=== PATIENT | male | born 1965 | race African-American/Black ===

== ENCOUNTER 2016-11-28 10:07 | Emergency (ER) | payer SELFPAY ==
[~2016-11-28] VITALS: Ht 188 cm; Wt 116.0 kg
[2016-11-28 10:09] VITALS: BP 188/117; PULSE 71; RESP 16; TEMP 98.4; O2SAT 100
[2016-11-28 10:31] VITALS: BP 168/107; PULSE 72; RESP 16; O2SAT 99
[2016-11-28 10:48] LABS: BLOOD, URINE TRACE (NEG); COMMENT (UR) CULT NOT INDICATED; CULTURE IF INDICATED CULT NOT INDICATED; GLUCOSE,URINE NEG (NEG); KETONE, URINE NEG (NEG); MUCUS URINE FEW /lpf (OCC); NITRITE,URINE NEG (NEG); PH, URINE 5.5 (5.0-8.5); SQUAMOUS EPITHELIAL CELL URINE <1 /hpf (0-5); URINE COLOR YELLOW (YELLW/STRAW)
[2016-11-28 11:02] LABS: AUTOMATED NEUTROPHIL # 2.9 TH/MM3 (1.8-7.7); BASOPHIL % 0.4 % (0.0-2.0); EOSINOPHIL # 0.1 TH/MM3 (0-0.4); EOSINOPHIL % 1.9 % (0.0-4.0); HEMATOCRIT 45.4 % (39.0-51.0); HEMO FLAGS DIFF FINAL; LYMPH % 39.9 % (9.0-44.0); LYMPHOCYTE # 2.3 TH/MM3 (1.0-4.8); MEAN CELL VOLUME 86.1 FL (80.0-100.0); MEAN CORPUSCULAR HGB CONC 32.5 % (32.0-36.0); MONO % 7.7 % (0.0-8.0); NEUT % 50.1 % (16.0-70.0); PLATELET COUNT 200 TH/MM3 (150-450); RED BLOOD COUNT 5.27 MIL/MM3 (4.50-5.90); WHITE BLOOD COUNT 5.8 TH/MM3 (4.0-11.0)
[2016-11-28 11:21] LABS: ALT (GPT) 34 U/L (12-78)
[2016-11-28 11:23] LABS: ALKALINE PHOSPHATASE 68 U/L (45-117); TOTAL BILIRUBIN ADULT 0.5 MG/DL (0.2-1.0)
--- NOTE | 2016-11-28 11:27 | PD ---
HPI Chief Complaint: Abnormal Results Time Seen by Provider: 11:22 Travel History International Travel<30 days: No Contact w/Intl Traveler<30days: No Traveled to known affect area: No History of Present Illness HPI Patient is a 51 year male sent to the emergency room for evaluation of abnormal lab results. Patient states he had a physical prior to starting his employment with the [employer], he was notified by the nurse this morning that he had abnormal results regarding his kidney function was told to come to emergency department for medical clearance. Patient is a physical complaints at this time. He reports a history of hypertension, noncompliant with medication due to insurance issues. He reports being on lisinopril and hydrochlorothiazide in the past. [facility] Past Medical History Arthritis: No Asthma: No Autoimmune Disease: No High Cholesterol: Yes Chest Pain: Yes Congestive Heart Failure: No COPD: No Cerebrovascular Accident: No Diabetes: No Diminished Hearing: No GERD: No Glaucoma: No Headaches: Yes Hepatitis: No Hiatal Hernia: No Hypertension: Yes Kidney Stones: No Immunizations Current: Yes Renal Failure: No Seizures: No Sleep Apnea: No Thyroid Disease: No Ulcer: No Influenza Vaccination: No Past Surgical History Abdominal Surgery: No Cardiac Surgery: No Ear Surgery: No Endocrine Surgery: No Eye Surgery: No Genitourinary Surgery: No Gynecologic Surgery: No Oral Surgery: No Thoracic Surgery: No Tonsillectomy: Yes Social History Alcohol Use: Yes (weekends) Tobacco Use: No Substance Use: No Allergies-Medications (Allergen,Severity, Reaction): Coded Allergies: No Known Allergies (Verified , 11/28/16) Reported Meds & Prescriptions Reported Meds & Active Scripts Active Hydrochlorothiazide 12.5 Mg Cap 12.5 Mg PO DAILY Lisinopril 10 Mg Tab 10 Mg PO DAILY Review of Systems Except as stated in HPI: all other systems reviewed are Neg Physical Exam Narrative GENERAL: Well-developed, well-nourished, alert male. Resting comfortably in no acute distress. SKIN: Warm and dry. HEAD: Atraumatic. Normocephalic. EYES: Pupils equal and round. No scleral icterus. No injection or drainage. ENT: No nasal bleeding or discharge. Mucous membranes pink and moist. NECK: Trachea midline. No JVD. CARDIOVASCULAR: Regular rate and rhythm. RESPIRATORY: No accessory muscle use. Clear to auscultation. Breath sounds equal bilaterally. GASTROINTESTINAL: Abdomen soft, non-tender, nondistended. Hepatic and splenic margins not palpable. MUSCULOSKELETAL: Extremities without clubbing, cyanosis, or edema. No obvious deformities. NEUROLOGICAL: Awake and alert. No obvious cranial nerve deficits. Motor grossly within normal limits. Five out of 5 muscle strength in the arms and legs. Normal speech. PSYCHIATRIC: Appropriate mood and affect; insight and judgment normal. Data Data Last Documented VS Vital Signs Date Time Temp Pulse Resp B/P Pulse Ox O2 Delivery O2 Flow Rate FiO2 11/28/16 10:31 72 16 168/107 99 Room Air 11/28/16 10:09 98.4 Orders Urinalysis - C+S If Indicated (11/28/16 10:22) Complete Blood Count With Diff (11/28/16 10:33) Comprehensive Metabolic Panel (11/28/16 10:33) Lipase (11/28/16 10:33) Amlodipine (Norvasc) (11/28/16 11:45) Labs Laboratory Tests Test 11/28/16 11/28/16 10:20 10:30 Urine Color YELLOW Urine Turbidity CLEAR Urine pH 5.5 Urine Specific [place] 1.021 Urine Protein NEG mg/dL Urine Glucose (UA) NEG mg/dL Urine Ketones NEG mg/dL Urine Occult Blood TRACE Urine Nitrite NEG Urine Bilirubin NEG Urine Urobilinogen LESS THAN 2.0 MG/DL Urine Leukocyte Esterase NEG Urine RBC 1 /hpf Urine WBC LESS THAN 1 /hpf Urine Squamous Epithelial <1 /hpf Cells Urine Mucus FEW /lpf Microscopic Urinalysis Comment CULT NOT INDICATED White Blood Count 5.8 TH/MM3 Red Blood Count 5.27 MIL/MM3 Hemoglobin 14.8 GM/DL Hematocrit 45.4 % Mean Corpuscular Volume 86.1 FL Mean Corpuscular Hemoglobin 28.0 PG Mean Corpuscular Hemoglobin 32.5 % Concent Red Cell Distribution Width 13.0 % Platelet Count 200 TH/MM3 Mean Platelet Volume 8.5 FL Neutrophils (%) (Auto) 50.1 % Lymphocytes (%) (Auto) 39.9 % Monocytes (%) (Auto) 7.7 % Eosinophils (%) (Auto) 1.9 % Basophils (%) (Auto) 0.4 % Neutrophils # (Auto) 2.9 TH/MM3 Lymphocytes # (Auto) 2.3 TH/MM3 Monocytes # (Auto) 0.4 TH/MM3 Eosinophils # (Auto) 0.1 TH/MM3 Basophils # (Auto) 0.0 TH/MM3 CBC Comment DIFF FINAL Differential Comment Sodium Level 140 MEQ/L Potassium Level 4.1 MEQ/L Chloride Level 105 MEQ/L Carbon Dioxide Level 30.3 MEQ/L Anion Gap 5 MEQ/L Blood Urea Nitrogen 15 MG/DL Creatinine 1.22 MG/DL Estimat Glomerular Filtration 77 ML/MIN Rate Random Glucose 91 MG/DL Calcium Level 9.2 MG/DL Total Bilirubin 0.5 MG/DL Aspartate Amino Transf 26 U/L (AST/SGOT) Alanine Aminotransferase 34 U/L (ALT/SGPT) Alkaline Phosphatase 68 U/L Total Protein 7.5 GM/DL Albumin 3.9 GM/DL Lipase 137 U/L [facility] Medical Decision Making Medical Screen Exam Complete: Yes Emergency Medical Condition: Yes Interpretation(s) Laboratory Tests Test 11/28/16 11/28/16 10:20 10:30 Urine Color YELLOW Urine Turbidity CLEAR Urine pH 5.5 Urine Specific [place] 1.021 Urine Protein NEG mg/dL Urine Glucose (UA) NEG mg/dL Urine Ketones NEG mg/dL Urine Occult Blood TRACE Urine Nitrite NEG Urine Bilirubin NEG Urine Urobilinogen LESS THAN 2.0 MG/DL Urine Leukocyte Esterase NEG Urine RBC 1 /hpf Urine WBC LESS THAN 1 /hpf Urine Squamous Epithelial <1 /hpf Cells Urine Mucus FEW /lpf Microscopic Urinalysis Comment CULT NOT INDICATED White Blood Count 5.8 TH/MM3 Red Blood Count 5.27 MIL/MM3 Hemoglobin 14.8 GM/DL Hematocrit 45.4 % Mean Corpuscular Volume 86.1 FL Mean Corpuscular Hemoglobin 28.0 PG Mean Corpuscular Hemoglobin 32.5 % Concent Red Cell Distribution Width 13.0 % Platelet Count 200 TH/MM3 Mean Platelet Volume 8.5 FL Neutrophils (%) (Auto) 50.1 % Lymphocytes (%) (Auto) 39.9 % Monocytes (%) (Auto) 7.7 % Eosinophils (%) (Auto) 1.9 % Basophils (%) (Auto) 0.4 % Neutrophils # (Auto) 2.9 TH/MM3 Lymphocytes # (Auto) 2.3 TH/MM3 Monocytes # (Auto) 0.4 TH/MM3 Eosinophils # (Auto) 0.1 TH/MM3 Basophils # (Auto) 0.0 TH/MM3 CBC Comment DIFF FINAL Differential Comment Sodium Level 140 MEQ/L Potassium Level 4.1 MEQ/L Chloride Level 105 MEQ/L Carbon Dioxide Level 30.3 MEQ/L Anion Gap 5 MEQ/L Blood Urea Nitrogen 15 MG/DL Creatinine 1.22 MG/DL Estimat Glomerular Filtration 77 ML/MIN Rate Random Glucose 91 MG/DL Calcium Level 9.2 MG/DL Total Bilirubin 0.5 MG/DL Aspartate Amino Transf 26 U/L (AST/SGOT) Alanine Aminotransferase 34 U/L (ALT/SGPT) Alkaline Phosphatase 68 U/L Total Protein 7.5 GM/DL Albumin 3.9 GM/DL Lipase 137 U/L Vital Signs Date Time Temp Pulse Resp B/P Pulse Ox O2 Delivery O2 Flow Rate FiO2 11/28/16 10:31 72 16 168/107 99 Room Air 11/28/16 10:09 98.4 71 16 188/117 100 Room Air Differential Diagnosis Uncontrolled hypertension versus renal insufficiency versus renal artery stenosis versus electrolyte abnormality versus other Narrative Course Patient is a 51-year-old male presenting for evaluation of abnormal results after he had a physical performed for the formerly [employer] for preemployment purposes. He had no physical complaints at this time. His past medical history significant for hypertension which has not been compliant with medications due to insurance issues. Patient is hypertensive. Amlodipine 10 mg by mouth times one dose ordered for blood pressure control while waiting for renal function to results. CBC is unremarkable Chemistry with no acute findings Urinalysis with trace blood Patient is to be discharged home, he is medically cleared. He will be provided with prescriptions for lisinopril and HCTZ which is what he had been on in the past. He was informed regarding test results. He was advised to establish care with a primary doctor or at the [facility] for ongoing healthcare. He was advised to maintain compliance with medications. He was encouraged to return to emergency department for any new or worsening symptoms. Patient verbalizes understanding of these instructions. Patient is stable for discharge. Diagnosis Primary Impression: Hypertension Qualified Code: I10 - Hypertension, unspecified type Referrals: [facility] 1 week Primary Care Physician 1 week Patient Instructions: 2 Gram Sodium Diet (GEN), General Instructions, Hypertension (ED) Departure Forms: Tests/Procedures, Work Release Enter return to work date: Nov 28, 2016 Special Instructions: No abnormal lab findings noted, patient is medically cleared at this time. Additional Instructions: Follow-up with a primary doctor or at the [facility] for ongoing healthcare Maintain compliance with blood pressure medications Maintain adequate fluid intake Return to emergency department for any new or worsening symptoms Med/Other Pt SpecificInfo: Prescription(s) given Scripts Hydrochlorothiazide 12.5 Mg Cap12.5 Mg PO DAILY #30 CAP Ref 0 Prov:Caroline Rasheed 11/28/16 Lisinopril 10 Mg Tab10 Mg PO DAILY #30 TAB Ref 0 Prov:Caroline Rasheed 11/28/16 Disposition: 01 DISCHARGE HOME Condition: Stable Caroline Rasheed Nov 28, 2016 11:27
[2016-11-28 11:46] LABS: ANION GAP 5 MEQ/L (5-15); AST (GOT) 26 U/L (15-37); BICARBONATE 30.3 MEQ/L (21.0-32.0); BLOOD UREA NITROGEN 15 MG/DL (7-18); CHLORIDE 105 MEQ/L (98-107); GLOMERULAR FILTRATION RATE 77 ML/MIN (>89); POTASSIUM 4.1 MEQ/L (3.5-5.1); SODIUM (NA) 140 MEQ/L (136-145)
[2016-11-28] MEDS ORDERED: HYDR12.57 PO (12:09)
[2016-11-28] MEDS ORDERED: LISI10TA3 PO (12:09)
== END 2016-11-28 13:00 | disposition home or self-care (01) ==
LOC: NEPE 10:07
DX: I10 Essential (primary) hypertension (principal); Z91.14 Patient's other noncompliance with medication regimen
CPT/HCPCS: 80053; 81001; 83690; 85025; 99284

== ENCOUNTER 2017-06-26 21:22 | Emergency (ER) | payer SELFPAY ==
[~2017-06-26] VITALS: Ht 188 cm; Wt 116.1 kg
[~2017-06-26 21:22] MED LIST: HYDR12.57 PO; LISI10TA3 PO
[2017-06-26 21:24] VITALS: BP 204/109; PULSE 72; RESP 18; TEMP 98.3; O2SAT 98
[2017-06-26] MEDS ORDERED: AZITHROMYCIN 250 MG TAB PO ONE (22:00)
[2017-06-26] MEDS ORDERED: LIDOCAINE HCL 1% 50 ML VIAL XX ONE (22:00)
[2017-06-26] MEDS ORDERED: cefTRIAXone 250 MG VIAL IM ONE (22:00)
[2017-06-26] MEDS ORDERED: LIDOCAINE HCL 1% PF 30 ML VIAL ONE (22:04)
--- NOTE | 2017-06-26 22:04 | PD ---
HPI . Penile discharge Chief Complaint: Complaint Time Seen by Provider: 21:40 Travel History International Travel<30 days: No Contact w/Intl Traveler<30days: No Traveled to known affect area: No History of Present Illness HPI This patient presents with a chief complaint of a penile discharge. Onset was a week ago. He reports no other associated symptoms. He states that he noticed a little bit of a stinging and he provided us with a urine sample but he believes that that may have been just because we've been asking him whether or not he's had any burning. PFSH Past Medical History Arthritis: No Asthma: No Autoimmune Disease: No Cardiovascular Problems: Yes (HTN-RAN OUT OF MEDS) High Cholesterol: Yes Chest Pain: Yes Congestive Heart Failure: No COPD: No Cerebrovascular Accident: No Diabetes: No Diminished Hearing: No GERD: No Glaucoma: No Headaches: Yes Hepatitis: No Hiatal Hernia: No Hypertension: Yes (UNTREATED) Kidney Stones: No Immunizations Current: Yes Renal Failure: No Seizures: No Sleep Apnea: No Thyroid Disease: No Ulcer: No Tetanus Vaccination: > 5 Years Influenza Vaccination: No Past Surgical History Abdominal Surgery: No Cardiac Surgery: No Ear Surgery: No Endocrine Surgery: No Eye Surgery: No Genitourinary Surgery: No Gynecologic Surgery: No Oral Surgery: No Thoracic Surgery: No Tonsillectomy: Yes Social History Alcohol Use: Yes (weekends) Tobacco Use: No Substance Use: No Allergies-Medications (Allergen,Severity, Reaction): Coded Allergies: No Known Allergies (Verified Adverse Reaction, Unknown, 06/26/17) Reported Meds & Prescriptions Reported Meds & Active Scripts Active Hydrochlorothiazide 12.5 Mg Cap 12.5 Mg PO DAILY Lisinopril 10 Mg Tab 10 Mg PO DAILY Review of Systems Except as stated in HPI: all other systems reviewed are Neg Genitourinary: Positive: Discharge Physical Exam Narrative GENERAL: Awake and alert and in no acute distress. SKIN: Warm and dry. HEAD: Normocephalic/atraumatic. EYES: Pupils are equal. Extraocular movements are intact. NECK: Normal range of motion. RESPIRATORY: Nonlabored respirations. MUSCULOSKELETAL: Atraumatic. NEUROLOGICAL: Nonfocal. PSYCHIATRIC: Appropriate mood and affect. Data Data Last Documented VS Vital Signs Date Time Temp Pulse Resp B/P (MAP) Pulse Ox O2 Delivery O2 Flow Rate FiO2 06/26/17 21:24 98.3 72 18 204/109 (140) 98 Orders Orders Gc And Chlamydia Pcr (06/26/17 21:40) Ceftriaxone Inj (Rocephin Inj) (06/26/17 22:00) Lidocaine 1% Inj (50 Ml) (Xylocaine 1% I (06/26/17 22:00) Azithromycin (Zithromax) (06/26/17 22:00) Ed Discharge Order (06/26/17 22:01) MDM Medical Decision Making Medical Screen Exam Complete: Yes Emergency Medical Condition: Yes Differential Diagnosis Differential diagnosis of penile discharge includes but is not limited to gonorrhea and chlamydia Narrative Course This patient presents with a penile discharge. He will be treated presumptively for gonorrhea and chlamydia with Rocephin and Zithromax. Diagnosis Primary Impression: Urethritis Referrals: [facility] Patient Instructions: General Instructions, Sexually Transmitted Diseases (ED) Departure Forms: Tests/Procedures Disposition: 01 DISCHARGE HOME Condition: Stable Kait Blankenship MD Jun 26, 2017 22:03
[2017-06-26 22:28] VITALS: BP 134/102
== END 2017-06-26 22:41 | disposition home or self-care (01) ==
LOC: PHEFT 21:22
DX: N34.2 Other urethritis (principal); E78.00 Pure hypercholesterolemia, unspecified; I10 Essential (primary) hypertension
CPT/HCPCS: 87491; 87591; 96372; 99283; J0696

== ENCOUNTER 2017-07-05 21:57 | Emergency (ER) | payer SELFPAY ==
[~2017-07-05] VITALS: Ht 188 cm; Wt 114.3 kg
[2017-07-05 22:04] VITALS: BP 210/108; PULSE 98; RESP 16; TEMP 98.5; O2SAT 99
[2017-07-05] MEDS ORDERED: SODIUM CHLORIDE 0.9% FLUSH 10 ML FLUSH IVF PRN (22:45)
[2017-07-05] MEDS ORDERED: LIDOCAINE HCL 1% 50 ML VIAL XX ONE (22:45)
[2017-07-05] MEDS ORDERED: cefTRIAXone 250 MG VIAL IM ONE (22:45)
[2017-07-05] MEDS ORDERED: AZITHROMYCIN 250 MG TAB PO ONE (22:45)
[2017-07-05] MEDS ORDERED: LIDOCAINE HCL 1% PF 30 ML VIAL ONE (22:48)
[2017-07-05 22:49] LABS: BILIRUBIN, URINE NEG (NEG); BLOOD, URINE SMALL (NEG); GLUCOSE,URINE NEG (NEG); KETONE, URINE NEG (NEG); NITRITE,URINE NEG (NEG); PH, URINE 7.5 (5.0-8.5); URINE LEUKOCYTE ESTERASE SMALL (NEG)
[2017-07-05 22:58] LABS: MUCUS URINE MOD /lpf (OCC); RBC, URINE 15-19 /hpf (0-3); SQUAMOUS EPITHELIAL CELL URINE 0-5 /hpf (0-5); URINE COLOR YELLOW (YELLW/STRAW)
[2017-07-05] MEDS ORDERED: DOXY100C PO (23:15)
[2017-07-05] MEDS ORDERED: LISI10TA3 PO (23:15)
--- NOTE | 2017-07-05 23:15 | PD ---
HPI Chief Complaint: Complaint Time Seen by Provider: 22:38 Travel History International Travel<30 days: No Contact w/Intl Traveler<30days: No Traveled to known affect area: No History of Present Illness HPI 52-year-old male presents to the emergency department for complaint of urethral discharge. Patient states he was recently seen for urethral discharge was treated with an injection and pills and symptoms initially started to completely resolve but continues to have mild discharge. Patient also has history of hypertension but has been out of his blood pressure medication. Patient denies other concerns or complaints. Patient rates pain as minimal. PFSH Past Medical History Narrative Medical Hypertension dyslipidemia tonsillectomy alcohol use; nursing notes reviewed Arthritis: No Asthma: No Autoimmune Disease: No Cardiovascular Problems: Yes (bp) High Cholesterol: Yes Chest Pain: Yes Congestive Heart Failure: No COPD: No Cerebrovascular Accident: No Diabetes: No Diminished Hearing: No GERD: No Glaucoma: No Headaches: Yes Hepatitis: No Hiatal Hernia: No Hypertension: Yes (UNTREATED) Kidney Stones: No Immunizations Current: Yes Renal Failure: No Seizures: No Sleep Apnea: No Thyroid Disease: No Ulcer: No Tetanus Vaccination: Unknown Influenza Vaccination: No Past Surgical History Abdominal Surgery: No Cardiac Surgery: No Ear Surgery: No Endocrine Surgery: No Eye Surgery: No Genitourinary Surgery: No Gynecologic Surgery: No Oral Surgery: No Thoracic Surgery: No Tonsillectomy: Yes Social History Alcohol Use: Yes (weekends) Tobacco Use: No Substance Use: No Allergies-Medications (Allergen,Severity, Reaction): Coded Allergies: No Known Allergies (Verified Adverse Reaction, Unknown, 07/05/17) Reported Meds & Prescriptions Reported Meds & Active Scripts Active Lisinopril 10 Mg Tab 10 Mg PO DAILY Doxycycline Hyclate 100 Mg Cap 100 Mg PO BID 7 Days Review of Systems Except as stated in HPI: all other systems reviewed are Neg General / Constitutional: No: Fever, Chills Eyes: No: Visual changes HENT: No: Headaches, Neck Pain Cardiovascular: No: Chest Pain or Discomfort Respiratory: No: Shortness of Breath Gastrointestinal: No: Nausea, Vomiting, Abdominal Pain Genitourinary: Positive: Discharge, No: Dysuria Musculoskeletal: No: Myalgias, Arthralgias Skin: No Rash Neurologic: No: Weakness, Dizziness, Syncope, Focal Abnormalities, Coordination Problem, Headache, Change in Mentation Psychiatric: No: Anxiety Hematologic/Lymphatic: No: Easy Bruising Physical Exam Narrative GENERAL: Well-developed and nourished male no acute distress or respiratory distress SKIN: Warm and dry. HEAD: Normocephalic. EYES: No scleral icterus. No injection or drainage. NECK: Supple, trachea midline. No JVD or lymphadenopathy. CARDIOVASCULAR: Regular rate and rhythm without murmurs, gallops, or rubs. RESPIRATORY: Breath sounds equal bilaterally. No accessory muscle use. GASTROINTESTINAL: Abdomen soft, non-tender, nondistended. MUSCULOSKELETAL: No cyanosis, or edema. BACK: Nontender without obvious deformity. No CVA tenderness. Data Data Last Documented VS Vital Signs Date Time Temp Pulse Resp B/P (MAP) Pulse Ox O2 Delivery O2 Flow Rate FiO2 07/05/17 23:46 07/05/17 23:23 90 98 07/05/17 22:14 20 07/05/17 22:04 98.5 Orders Orders Urinalysis - C+S If Indicated (07/05/17 22:38) Gc And Chlamydia Pcr (07/05/17 22:38) Ceftriaxone Inj (Rocephin Inj) (07/05/17 22:45) Sodium Chloride 0.9% Flush (Ns Flush) (07/05/17 22:45) Lidocaine 1% Inj (50 Ml) (Xylocaine 1% I (07/05/17 22:45) Azithromycin (Zithromax) (07/05/17 22:45) Lidocaine Pf 1% Inj (Xylocaine-Mpf 1% In (07/05/17 22:48) Urine Culture (07/05/17 22:45) Ed Discharge Order (07/05/17 23:13) Lisinopril (Prinivil) (07/05/17 23:30) Labs Laboratory Tests Test 07/05/17 22:45 Urine Color YELLOW Urine Turbidity CLEAR Urine pH 7.5 Urine Specific [place] 1.025 Urine Protein 30 mg/dL Urine Glucose (UA) NEG mg/dL Urine Ketones NEG mg/dL Urine Occult Blood SMALL Urine Nitrite NEG Urine Bilirubin NEG Urine Leukocyte Esterase SMALL Urine RBC 15-19 /hpf Urine WBC 50-99 /hpf Urine Squamous Epithelial Cells 0-5 /hpf Urine Mucus MOD /lpf Microscopic Urinalysis Comment CULTURE INDICATED MDM Medical Decision Making Medical Screen Exam Complete: Yes Emergency Medical Condition: Yes Medical Record Reviewed: Yes Interpretation(s) Urinalysis: Leukocytes white blood cells red blood cells culture not indicated Differential Diagnosis Urethritis, UTI, dysuria, uncontrolled hypertension Narrative Course Urine specimen collection sent for resulting patient presumptively administered Rocephin and azithromycin Patient identified to have persistent elevation of blood pressure has been out of his blood pressure medication given lisinopril Patient desirous of being discharged home is aware that he needs to follow up with primary care provider and take his blood pressure medication as prescribed Diagnosis Primary Impression: Urethritis Additional Impressions: HTN (hypertension) Medication refill Referrals: Primary Care Physician call for appointment Patient Instructions: General Instructions Additional Instructions: Take your blood pressure medication as prescribed Complete course of antibiotic as prescribed Remain sexually abstinent until complete course of antibiotic Return to the emergency department for any concerns or change in condition Follow-up with primary care provider Med/Other Pt SpecificInfo: Prescription(s) given Scripts Lisinopril (Lisinopril) 10 Mg Tab 10 MG PO DAILY, #30 TAB 0 Refills Prov: Kelly Gillette MD 07/05/17 Doxycycline Hyclate (Doxycycline Hyclate) 100 Mg Cap 100 MG PO BID for Infection for 7 Days, #14 CAP 0 Refills Prov: Kelly Gillette MD 07/05/17 Disposition: 01 DISCHARGE HOME Condition: Stable Kelly Gillette MD Jul 05, 2017 23:15
[2017-07-05 23:23] VITALS: BP 166/112; PULSE 90; O2SAT 98
[2017-07-05] MEDS ORDERED: LISINOPRIL 10 MG TAB PO ONE (23:30)
== END 2017-07-05 23:49 | disposition home or self-care (01) ==
LOC: PHEFT 21:57
DX: N34.2 Other urethritis (principal); I10 Essential (primary) hypertension; E78.00 Pure hypercholesterolemia, unspecified; Z76.0 Encounter for issue of repeat prescription
CPT/HCPCS: 81001; 87086; 87491; 87591; 96372; 99283; J0696

== ENCOUNTER 2017-07-22 07:16 | Emergency (ER) | payer SELFPAY ==
[~2017-07-22] VITALS: Ht 188 cm; Wt 115.0 kg
[~2017-07-22 07:16] MED LIST changes: +DOXY100C PO; -HYDR12.57 PO
[2017-07-22 07:27] VITALS: BP 197/113; PULSE 69; RESP 16; TEMP 98; O2SAT 98
[2017-07-22 07:30] VITALS: BP 197/113; PULSE 89; RESP 16; TEMP 98; O2SAT 98
[2017-07-22] MEDS ORDERED: CIPR-9 PO (08:08)
[2017-07-22] MEDS ORDERED: AMLO10TA2 PO (08:08)
[2017-07-22] MEDS ORDERED: DOXY100C PO (08:08)
--- NOTE | 2017-07-22 08:08 | PD ---
HPI Chief Complaint: Medication Refill Request Time Seen by Provider: 08:03 Travel History International Travel<30 days: No Contact w/Intl Traveler<30days: No Traveled to known affect area: No History of Present Illness HPI Patient presents here states that he does not have a primary care physician, has a history of hypertension and needs a refill. He is also was diagnosed with chlamydia urethritis infection, and stated that he lost his prescription during travel and he still has the symptoms of burning on urination yellow to green discharge from his penis. Patient states that he is using condoms as contraceptive. No known drug allergies Medical history only of hypertension according to patient however on review patient also has history of heartburn hypercholesterolemia PFSH Past Medical History Arthritis: No Asthma: No Autoimmune Disease: No Cardiovascular Problems: Yes (bp) High Cholesterol: Yes Chest Pain: Yes Congestive Heart Failure: No COPD: No Cerebrovascular Accident: No Diabetes: No Diminished Hearing: No Gastrointestinal Disorders: No GERD: No Glaucoma: No Headaches: Yes Hepatitis: No Hiatal Hernia: No Hypertension: Yes (UNTREATED) Kidney Stones: No Musculoskeletal: No Neurologic: No Respiratory: No Immunizations Current: Yes Renal Failure: No Seizures: No Sleep Apnea: No Thyroid Disease: No Ulcer: No Past Surgical History Abdominal Surgery: No Cardiac Surgery: No Ear Surgery: No Endocrine Surgery: No Eye Surgery: No Genitourinary Surgery: No Gynecologic Surgery: No Insulin Pump: No Neurologic Surgery: No Oral Surgery: No Thoracic Surgery: No Tonsillectomy: Yes Other Surgery: No Social History Alcohol Use: Yes (weekends) Tobacco Use: No Substance Use: No Allergies-Medications (Allergen,Severity, Reaction): Coded Allergies: No Known Allergies (Verified Adverse Reaction, Unknown, 07/22/17) Reported Meds & Prescriptions Reported Meds & Active Scripts Active No Active Prescriptions or Reported Medications Review of Systems Except as stated in HPI: all other systems reviewed are Neg General / Constitutional: No: Fever Eyes: No: Visual changes HENT: No: Headaches Cardiovascular: No: Chest Pain or Discomfort Respiratory: No: Shortness of Breath Gastrointestinal: No: Abdominal Pain Genitourinary: Positive: Dysuria Musculoskeletal: No: Pain Skin: No Rash Neurologic: No: Weakness Psychiatric: No: Depression Endocrine: No: Polydipsia Hematologic/Lymphatic: No: Easy Bruising Physical Exam Narrative GENERAL: SKIN: Warm and dry. HEAD: Atraumatic. Normocephalic. EYES: Pupils equal and round. No scleral icterus. No injection or drainage. ENT: No nasal bleeding or discharge. Mucous membranes pink and moist. NECK: Trachea midline. No JVD. CARDIOVASCULAR: Regular rate and rhythm. RESPIRATORY: No accessory muscle use. Clear to auscultation. Breath sounds equal bilaterally. GASTROINTESTINAL: Abdomen soft, non-tender, nondistended. shows no lymphadenopathy, no ulcers, no active urethral discharge noted at this time. MUSCULOSKELETAL: Extremities without clubbing, cyanosis, or edema. No obvious deformities. NEUROLOGICAL: Awake and alert. No obvious cranial nerve deficits. Motor grossly within normal limits. Five out of 5 muscle strength in the arms and legs. Normal speech. PSYCHIATRIC: Appropriate mood and affect; insight and judgment normal. Data Data Last Documented VS Vital Signs Date Time Temp Pulse Resp B/P (MAP) Pulse Ox O2 Delivery O2 Flow Rate FiO2 07/22/17 07:30 98.0 89 16 197/113 (141) 98 MDM Medical Decision Making Medical Screen Exam Complete: Yes Emergency Medical Condition: Yes Medical Record Reviewed: Yes Differential Diagnosis Not applicable medication refill Narrative Course Patient will be given his prescriptions Diagnosis Primary Impression: Medication refill Additional Impression: Hypertension Qualified Codes: I10 - Essential (primary) hypertension Referrals: [facility] Scripts Amlodipine (Amlodipine) 10 Mg Tab 10 MG PO DAILY for Blood Pressure Management, #30 TAB 0 Refills Prov: Reinier Godoy MD 07/22/17 Doxycycline Hyclate (Doxycycline Hyclate) 100 Mg Cap 100 MG PO BID for Infection for 14 Days, #28 CAP 0 Refills Prov: Reinier Godoy MD 07/22/17 Ciprofloxacin (Cipro) 500 Mg Tab 500 MG PO BID for Infection for 3 Days, #6 TAB 0 Refills Prov: Reinier Godoy MD 07/22/17 Disposition: DISCHARGE HOME Condition: Stable Reinier Godoy MD Jul 22, 2017 08:08
[2017-07-22] MEDS ORDERED: cloNIDine HCL 0.1 MG TAB PO ONE (08:15)
== END 2017-07-22 08:23 | disposition home or self-care (01) ==
LOC: PHED 07:16
DX: Z76.0 Encounter for issue of repeat prescription (principal); I10 Essential (primary) hypertension; A56.01 Chlamydial cystitis and urethritis
CPT/HCPCS: 99283